=== PATIENT | female | born 1970 | race Asian ===

== ENCOUNTER 2022-08-05 00:14 | Emergency (ER) | payer MEDICAID ==
[~2022-08-05] VITALS: Ht 162.6 cm; Wt 73.0 kg
[2022-08-05 01:05] LABS: BASOPHILS % 0.5 % (0.0-2.0); EOSINOPHILS % 1.9 % (0.0-5.0); HEMATOCRIT. 40.8 % (36.0-48.0); HEMOGLOBIN. 12.7 g/dL (12.0-16.0); LYMPHOCYTES % 19.1 % (20.0-50.0); MEAN CORPUSCULAR VOLUME 70.8 fL (81.0-99.0); MEAN PLATELET VOLUME 8.5 fl (7.4-10.4); MONOCYTES % 9.3 % (2.0-8.0); NEUTROPHILS % 69.2 % (40.0-76.0); PLATELET 277 x1000/uL (130-400); RED BLOOD CELL COUNT 5.77 mill/uL (4.2-5.4); RED CELL DISTRIBUTION WIDTH 15.2 % (11.6-14.6)
[2022-08-05 01:09] LABS: CLARITY URINE CLOUDY (CLEAR); COLOR URINE DARK YELLOW (YELLOW); KETONES URINE 1+ (NEGATIVE); LEUKOCYTE ESTERASE URINE 2+ (NEGATIVE); NITRITE URINE POSITIVE (NEGATIVE); OCCULT BLOOD URINE 3+ (NEGATIVE); PROTEIN URINE 1+ (NEGATIVE); SPECIFIC GRAVITY URINE 1.024 (1.005-1.030)
[2022-08-05 01:13] LABS: CHLORIDE 106 mEq/L (98-107)
[2022-08-05 01:21] LABS: *AMPHETAMINES SCREEN URINE NEGATIVE (NEGATIVE); *BARBITURATES SCREEN URINE NEGATIVE (NEGATIVE); *BENZODIAZEPINES SCREEN URINE NEGATIVE (NEGATIVE); *COCAINE SCREEN URINE NEGATIVE (NEGATIVE); CANNABINOID URINE SCREEN NEGATIVE (NEGATIVE); METHADONE URINE SCREEN NEGATIVE (NEGATIVE); OPIATES URINE SCREEN NEGATIVE (NEGATIVE); PHENCYCLIDINE URINE SCREEN NEGATIVE (NEGATIVE)
[2022-08-05 01:27] LABS: ETHANOL BLOOD < 10 mg/dL (-10)
[2022-08-05 01:35] LABS: HCG SCREEN NEGATIVE
[2022-08-05] MEDS ORDERED: LORAZEPAM 1MG TABLET PO ONE (02:00)
[2022-08-05] MEDS ORDERED: NITROFURANTOIN 100MG M/M CAPSULE PO STA (02:13)
[2022-08-05] MEDS ORDERED: NITROFURANTOIN 100MG M/M CAPSULE PO SCH (08:30)
[2022-08-05] MEDS: NITROFURANTOIN 100MG M/M CAPSULE PO SCH ×2 (08:30→21:00)
[2022-08-05] MEDS ORDERED: OLANZAPINE 10 MG/VIAL IM ONE (14:15)
[2022-08-05] MEDS ORDERED: MIDAZOLAM HCL 2 MG/2 ML VIAL IM ONE (14:15)
[2022-08-06] MEDS: NITROFURANTOIN 100MG M/M CAPSULE PO SCH ×2 (09:00→11:15)
[2022-08-06] MEDS ORDERED: LORAZEPAM 2MG/ML CPJ IM STA ×2 (09:13→10:17)
[2022-08-06] MEDS ORDERED: OLANZAPINE 10 MG/VIAL IM ONE (09:15)
[2022-08-06 10:00] VITALS: O2SAT 100
[2022-08-06] MEDS: OLANZAPINE 5MG TABLET ODT PO SCH ×2 (12:30→17:06)
[2022-08-07] MEDS: OLANZAPINE 5MG TABLET ODT PO SCH ×2 (09:15→17:00)
[2022-08-07] MEDS: NITROFURANTOIN 100MG M/M CAPSULE PO SCH (09:15)
[2022-08-07] MEDS ORDERED: LORAZEPAM 1MG TABLET PO ONE (12:00)
[2022-08-07] MEDS ORDERED: OLANZAPINE 10 MG/VIAL IM ONE (17:15)
[2022-08-07 18:23] VITALS: BP 149/86; PULSE 92; RESP 20; TEMP 98
== END 2022-08-07 19:08 ==
LOC: ER 01:01
DX: F23 Brief psychotic disorder (principal); N39.0 Urinary tract infection, site not specified; Z20.822 Contact with and (suspected) exposure to COVID-19
CPT/HCPCS: 36415; 80053; 80305; 80307; 80320; 80329; 81003; 81025; 82962; 84703; 85025; 87077; 87086; 87186; 87426; 96372; 99285; C9803; J2060; J2250; J3490; Z7610; G0480